=== PATIENT | female | born 1980 | race Caucasian/White ===

== ENCOUNTER 2016-07-06 22:36 | Inpatient (IN) | payer MEDICAID ==
[2016-07-06] MEDS ORDERED: OXYTOCIN 10 UNIT INJ ONE (22:47)
[2016-07-06] MEDS ORDERED: OXYTOCIN 30 UNITS/LR 500 ML IV ONE ×2 (22:48)
--- NOTE | 2016-07-06 22:51 | TRIAGE ---
OB Triage Datetime Report Generated by CPN: 07/06/2016 22:51 Datetime: 07/06/2016 22:49 Time of Arrival: 07/06/2016 22:35 EGA: 38.5 Arrived By: Wheelchair Arrived From: Home Chief Complaint: w/ c/o ucs and SROM at 2233 Movement: Present Contractions: Regular Time Contractions Began: 07/06/2016 21:00 Contractions: q3 Rupture of Membranes: Ruptured Vaginal Bleeding: Small Vaginal Discharge: Present Recent Sexual Intercouse: Denies Abdominal Trauma: Not Applicable Patient Complaints: Contractions Time Provider Notified: 07/06/2016 22:43 Provider Notified: Dr Mendez
[2016-07-06] MEDS ORDERED: LACTATED RINGER'S 1,000 ML IV SCH (22:52)
[2016-07-06] MEDS ORDERED: morphine 10 MG INJ ONE (22:57)
[2016-07-06] MEDS ORDERED: OXYTOCIN 30 UNITS/LR 500 ML IV SCH ×2 (23:00)
[2016-07-06] MEDS ORDERED: LIDOCAINE 1% (MPF) 30 ML INJ INJ PRN (23:00)
[2016-07-06] MEDS ORDERED: AMPICILLIN 2 GM/NS (PMX) 100 ML IV ONE (23:00)
[2016-07-06] MEDS ORDERED: METHYLERGONOVINE 0.2 MG INJ IM PRN (23:00)
[2016-07-06] MEDS ORDERED: MISOPROSTOL 200 MCG TAB PR PRN (23:00)
[2016-07-06] MEDS ORDERED: IBUPROFEN 600 MG TAB PO PRN (23:00)
[2016-07-06] MEDS ORDERED: CARBOPROST 250 MCG INJ IM PRN (23:00)
[2016-07-06] MEDS ORDERED: OXYTOCIN 30 UNITS/LR 500 ML IV PRN (23:00)
--- NOTE | 2016-07-06 23:11 | HP ---
Date/Time of Note Date/Time of Note DATE: 07/06/16 TIME: 23:07 OB - History Hx of Present Chief Complaint: contractions Estimated Due Date: Jul 15, 2016 : 3 Para: 2 Spontaneous : 0 Therapeutic : 0 Care: Good Care Ultrasounds: Normal mid trimester US Obstetrical Complications: Growth Restriction Medical Complications: None Past Family/Social History * Past Medical, Surgical, Family and Obstetric Histories reviewed from chart. GBS Status: Negative OB Admission Exam Physical Exam HEENT: WNL Heart: Rhythm Normal Lungs: Clear Abdomen: WNL Extremities: Normal Cervical Dilatation: 8cm Effacement: 100% Station: 0 Membranes: Ruptured Amniotic Fluid: Clear OB Assessment/Plan Reason for admission: active labor Plan: Expectant Management MIGUEL REID MD July 06, 2016 23:11
--- NOTE | 2016-07-06 23:13 | LDN ---
Date/Time of Note Date/Time of Note DATE: 07/06/16 TIME: 23:11 Delivery Summary Weeks of Gestation 38 weeeks and 5 days Placenta Delivered: Spontaneously Meconium: none Episiotomy: No (Please specify) Perineal laceration: 0 Anesthesia type: None Estimated blood loss: 100 Sponge & Needle done & correct: Yes All needle counts correct: Yes Any foreign bodies felt in the: No (Please specify) Problems: Delivery Information Sex Sex: male Apgars 1 Minute: 9 5 Minute: 9 Suctioning Nose & mouth suctioned at [place]: Yes Delee suction performed: No Umbilical Cord Cord presentations: no nuchal cord Cord Blood was obtained: Yes Mother & Baby Disposition Disposition Mom transferred to: Other () Baby to NICU: Yes MIGUEL REID MD July 06, 2016 23:13
[2016-07-06 23:29] LABS: ADD SCAN DIFF NO
[2016-07-06 23:36] LABS: BASOPHILS % 0.2 % (0.0-2.0); EOSINOPHILS # 0.1 10^3/ul (0.0-0.5); EOSINOPHILS % 0.4 % (0.0-7.0); HEMATOCRIT 39.8 % (37.0-47.0); HEMOGLOBIN 13.5 g/dl (12.0-16.0); LYMPHOCYTES # 3.7 10^3/ul (0.8-2.9); MEAN CORPUSCULAR HGB CONC 33.9 g/dl (32.0-37.0); MEAN CORPUSCULAR VOLUME 94.3 fl (82.0-101.0); MEAN PLATELET VOLUME 11.3 fl (7.4-10.4); MONOCYTE # 1.4 10^3/ul (0.3-0.9); NEUTROPHIL # 12.2 10^3/ul (1.6-7.5); NEUTROPHILS % 69.4 % (39.0-77.0); PLATELET COUNT 219 10^3/UL (140-415); RED BLOOD COUNT 4.22 10^6/ul (4.20-5.40); RED CELL DISTRIBUTION WIDTH 12.5 % (11.5-14.5); WHITE BLOOD COUNT 17.6 10^3/ul (4.8-10.8)
[2016-07-07 00:06] LABS: ALBUMIN 3.6 g/dl (3.3-4.9); ALBUMIN/GLOBULIN RATIO 0.9; BILIRUBIN,INDIRECT 0.7 mg/dl (0-1.1); BILIRUBIN,TOTAL 0.7 mg/dl (0.2-1.3); CALCIUM 9.4 mg/dl (8.4-10.2); CREATININE 0.53 mg/dl (0.44-1.00); TOTAL PROTEIN 7.6 g/dl (6.1-8.1); URIC ACID 4.7 mg/dl (3.1-7.9)
[2016-07-07] MEDS ORDERED: LACTATED RINGER'S 1,000 ML IV* SCH (01:24)
[2016-07-07 01:30] VITALS: BP 127/80; PULSE 91; RESP 19
[2016-07-07] MEDS ORDERED: ACETAMINOPHEN 325 MG TAB PO PRN (01:30)
[2016-07-07] MEDS ORDERED: ACETAMINOPHEN/CODEINE #3 TAB PO PRN (01:30)
[2016-07-07] MEDS ORDERED: WITCH HAZEL/GLYCERIN PAD PR PRN (01:30)
[2016-07-07] MEDS ORDERED: OXYTOCIN 30 UNITS/LR 500 ML IV PRN (01:30)
[2016-07-07] MEDS ORDERED: CARBOPROST 250 MCG INJ IM PRN (01:30)
[2016-07-07] MEDS ORDERED: MISOPROSTOL 200 MCG TAB PR PRN (01:30)
[2016-07-07] MEDS ORDERED: DIBUCAINE 1% 30 GM OINT PR PRN (01:30)
[2016-07-07] MEDS ORDERED: BENZOCAINE 20% 56 ML SPRAY TOP PRN (01:30)
[2016-07-07] MEDS ORDERED: METHYLERGONOVINE 0.2 MG INJ IM PRN (01:30)
[2016-07-07 02:11] LABS: INR 0.91; PROTIME 12.3 Sec (12.2-14.2)
[2016-07-07 02:12] LABS: PARTIAL THROMBOPLASTIN TIME 27.9 Sec (25.0-35.0)
[2016-07-07] MEDS ORDERED: AMPICILLIN 1 GM/NS (PMX) 50 ML IV SCH (03:00)
[2016-07-07 03:30] VITALS: BP_SYST 114; BP_SYST 116; BP_DIAS 55; BP_DIAS 69; PULSE 71; PULSE 81; RESP 18
[2016-07-07 04:21] LABS: ADD UMIC YES; URINE BILIRUBIN (Dip) NEGATIVE (NEGATIVE); URINE BLOOD (Dip) 3+ (NEGATIVE); URINE COLOR DK. RED (YELLOW); URINE GLUCOSE (Dip) NEGATIVE (NEGATIVE); URINE KETONES (Dip) 40 (NEGATIVE); URINE LEUKOCYTE ESTERASE (Dip) 2+ (NEGATIVE); URINE NITRITE (Dip) POSITIVE (NEGATIVE); URINE UROBILINOGEN (Dip) 2.0 E.U./dL (0.1-1.0)
[2016-07-07 04:51] LABS: URINE TOTAL PROTEIN (Dip) 4+ (NEGATIVE)
[2016-07-07 04:52] LABS: BACTERIA,URINE MANY; SQUAMOUS EPITHELIAL CELL,UR FEW; URINE RBCS >200 /HPF (0)
[2016-07-07 08:00] VITALS: BP 116/75; PULSE 88; RESP 19
[2016-07-07 09:01] LABS: ADD SCAN DIFF NO
[2016-07-07 09:04] LABS: BASOPHILS % 0.2 % (0.0-2.0); EOSINOPHILS % 0.2 % (0.0-7.0); HEMATOCRIT 38.6 % (37.0-47.0); HEMOGLOBIN 13.1 g/dl (12.0-16.0); LYMPHOCYTES # 2.2 10^3/ul (0.8-2.9); LYMPHOCYTES % 12.6 % (15.0-51.0); MEAN CORPUSCULAR HEMOGLOBIN 32.1 pg (29.0-33.0); MEAN CORPUSCULAR HGB CONC 33.9 g/dl (32.0-37.0); MEAN CORPUSCULAR VOLUME 94.6 fl (82.0-101.0); MEAN PLATELET VOLUME 11.4 fl (7.4-10.4); MONOCYTE # 1.2 10^3/ul (0.3-0.9); MONOCYTES % 6.7 % (0.0-11.0); NEUTROPHILS % 79.5 % (39.0-77.0); PLATELET COUNT 215 10^3/UL (140-415); RED BLOOD COUNT 4.08 10^6/ul (4.20-5.40); RED CELL DISTRIBUTION WIDTH 12.4 % (11.5-14.5); WHITE BLOOD COUNT 17.7 10^3/ul (4.8-10.8)
[2016-07-07] MEDS: SENNA/DOCUSATE NA (8.6MG/50MG) TAB PO SCH ×2 (09:13→21:00)
--- NOTE | 2016-07-07 10:00 | PN ---
Date/Time of Note Date/Time of Note DATE: 07/07/16 TIME: 09:59 OB Subjective Subjective Subjective Post normal vaginal delivery day 1 Afebrile VSs stable abdomen soft uterus firm lochia normal extremity normal ambulation encouraged Laboratory Tests Test 07/06/16 22:45 07/06/16 23:00 07/06/16 23:14 07/06/16 23:59 Sodium Level 134mmol/L Potassium Level 4.0mmol/L Chloride Level 106mmol/L Carbon Dioxide Level 17mmol/L Anion Gap 15 Blood Urea Nitrogen 9mg/dl Creatinine 0.53mg/dl Glucose Level 102mg/dl Uric Acid 4.7mg/dl Calcium Level 9.4mg/dl Total Bilirubin 0.7mg/dl Direct Bilirubin 0.00mg/dl Indirect Bilirubin 0.7mg/dl Aspartate Amino Transf (AST/SGOT) 31IU/L Alanine Aminotransferase (ALT/SGPT) 33IU/L Alkaline Phosphatase 210IU/L Total Protein 7.6g/dl Albumin 3.6g/dl Globulin 4.00g/dl Albumin/Globulin Ratio 0.90 White Blood Count 17.610^3/ul Red Blood Count 4.2210^6/ul Hemoglobin 13.5g/dl Hematocrit 39.8% Mean Corpuscular Volume 94.3fl Mean Corpuscular Hemoglobin 32.0pg Mean Corpuscular Hemoglobin Concent 33.9g/dl Red Cell Distribution Width 12.5% Platelet Count 06716^3/UL Mean Platelet Volume 11.3fl Neutrophils % 69.4% Lymphocytes % 21.0% Monocytes % 8.0% Eosinophils % 0.4% Basophils % 0.2% Nucleated Red Blood Cells % 0.0/100WBC Neutrophils # 12.210^3/ul Lymphocytes # 3.710^3/ul Monocytes # 1.410^3/ul Eosinophils # 0.110^3/ul Basophils # 0.010^3/ul Nucleated Red Blood Cells # 0.010^3/ul Hepatitis B Surface Antigen NEGATIVE Bedside Glucose 69mg/dL Prothrombin Time 12.3Sec Prothrombin Time Ratio 1.0 INR International Normalized Ratio 0.91 Activated Partial Thromboplast Time 27.9Sec Test 07/07/16 00:21 07/07/16 08:32 Urine Color DK. RED Urine Clarity CLEAR Urine pH 5.0 Urine Specific [place] 1.015 Urine Ketones 40 Urine Nitrite POSITIVE Urine Bilirubin NEGATIVE Urine Urobilinogen 2.0 E.U./dL Urine Leukocyte Esterase 2+ Urine Microscopic RBC >200/HPF Urine Microscopic WBC 5-10/HPF Urine Squamous Epithelial Cells FEW Urine Bacteria MANY Urine Hemoglobin 3+ Urine Glucose NEGATIVE% Urine Total Protein 4+ White Blood Count 17.710^3/ul Red Blood Count 4.0810^6/ul Hemoglobin 13.1g/dl Hematocrit 38.6% Mean Corpuscular Volume 94.6fl Mean Corpuscular Hemoglobin 32.1pg Mean Corpuscular Hemoglobin Concent 33.9g/dl Red Cell Distribution Width 12.4% Platelet Count 96753^3/UL Mean Platelet Volume 11.4fl Neutrophils % 79.5% Lymphocytes % 12.6% Monocytes % 6.7% Eosinophils % 0.2% Basophils % 0.2% Nucleated Red Blood Cells % 0.0/100WBC Neutrophils # 14.010^3/ul Lymphocytes # 2.210^3/ul Monocytes # 1.210^3/ul Eosinophils # 0.010^3/ul Basophils # 0.010^3/ul Nucleated Red Blood Cells # 0.010^3/ul Current Medications Medications (Trade) Dose Ordered Sig/Roman Route PRN Reason Start Time Stop Time Status Last Admin Dose Admin Oxytocin 10 units 10 units STK-MED ONCE .ROUTE 07/06/16 22:47 07/06/16 22:48 DC Oxytocin/Lactated Ringer's 500 ml @ ud STK-MED ONCE IV 07/06/16 22:48 07/06/16 22:49 DC Oxytocin/Lactated Ringer's 500 ml @ ud STK-MED ONCE IV 07/06/16 22:48 07/06/16 22:49 DC Lactated Ringer's 1,000 ml @ 125 mls/hr Q8H IV 07/06/16 22:52 07/07/16 01:26 DC 07/06/16 23:28 Ampicillin 100 ml @ 100 mls/hr ONCE ONCE IV 07/06/16 23:00 07/06/16 23:59 DC 07/06/16 23:00 Ampicillin (Ampicillin 1 Gm/ NS (Pmx)) 50 ml @ 100 mls/hr Q4H IV 07/07/16 03:00 07/07/16 03:00 DC Lidocaine 30 ml 30 ml ONCE PRN INJ EPISIOTOMY/TEARING 07/06/16 23:00 07/07/16 01:26 DC Oxytocin/Lactated Ringer's 500 ml @ 125 mls/hr ONCE -MAY REPEAT X1 IV 07/06/16 23:00 07/07/16 01:26 DC Oxytocin/Lactated Ringer's 500 ml @ 125 mls/hr ONCE IV 07/06/16 23:00 07/07/16 01:27 DC Ibuprofen 600 mg 600 mg ONCE PRN PO Mild Pain (Pain Score 1-3) 07/06/16 23:00 07/07/16 01:27 DC Oxytocin/Lactated Ringer's 500 ml @ 0 mls/hr ONCE PRN IV For Hemorrhage Management 07/06/16 23:00 07/07/16 01:27 DC Methylergonovine Maleate (Methergine) 0.2 mg ONCE PRN IM VAGINAL BLEEDING 07/06/16 23:00 07/07/16 01:27 DC Carboprost Tromethamine (Hemabate) 250 mcg ONCE PRN IM VAGINAL BLEEDING 07/06/16 23:00 07/07/16 01:27 DC Misoprostol (Cytotec) 1,000 mcg ONCE PRN [place] VAGINAL BLEEDING 07/06/16 23:00 07/07/16 01:27 DC Morphine Sulfate 10 mg 10 mg STK-MED ONCE .ROUTE 07/06/16 22:57 07/06/16 22:58 DC Lactated Ringer's (Lr) 1,000 ml @ 125 mls/hr Q8H IV* 07/07/16 01:24 07/07/16 05:11 Ibuprofen (Motrin) 600 mg Q6 PO 07/07/16 12:00 Acetaminophen (Tylenol Tab) 650 mg Q4H PRN PO PAIN LEVEL 1-5 07/07/16 01:30 Acetaminophen/ Codeine Phosphate (Tylenol No.3) 1 tab Q4H PRN PO PAIN LEVEL 1-5 07/07/16 01:30 07/07/16 01:50 Senna/Docusate Sodium (Senokot-S) 1 tab BID PO 07/07/16 09:00 07/07/16 09:13 Witch Lachelle/ Glycerin (Tucks Pads) 1 pad BEDSIDE MEDICATION PRN [place] HEMORRHOID/EPISIOTMY PAIN 07/07/16 01:30 07/07/16 01:50 Benzocaine (Dermoplast [place]) 1 spray BEDSIDE MEDICATION PRN TOP HEMORRHOID/EPISIOTMY PAIN 07/07/16 01:30 07/07/16 01:50 Dibucaine (Nupercainal) 1 applic BEDSIDE MEDICATION PRN [place] HEMORRHOID/EPISIOTMY PAIN 07/07/16 01:30 Diphtheria/ Tetanus/Acell Pertussis 0.5 ml 0.5 ml ONCE ONCE IM* 07/08/16 09:00 07/08/16 09:01 Oxytocin/Lactated Ringer's 500 ml @ 0 mls/hr ONCE PRN IV For Hemorrhage Management 07/07/16 01:30 Methylergonovine Maleate (Methergine) 0.2 mg ONCE PRN IM VAGINAL BLEEDING 07/07/16 01:30 Carboprost Tromethamine (Hemabate) 250 mcg ONCE PRN IM VAGINAL BLEEDING 07/07/16 01:30 Misoprostol (Cytotec) 1,000 mcg ONCE PRN [place] VAGINAL BLEEDING 07/07/16 01:30 VIVIANA MORELOS MD July 07, 2016 10:00
[2016-07-07] MEDS: IBUPROFEN 600 MG TAB PO SCH ×2 (13:48→18:48)
[2016-07-07 16:00] VITALS: BP 105/76; PULSE 85; RESP 19
[2016-07-07 20:00] VITALS: BP 129/71; PULSE 86; RESP 20
[2016-07-08] MEDS: IBUPROFEN 600 MG TAB PO SCH ×3 (00:24→12:20)
[2016-07-08 04:00] VITALS: BP 118/74; PULSE 81; RESP 18
[2016-07-08 07:40] VITALS: BP 107/95; PULSE 88; RESP 16
[2016-07-08 08:09] LABS: ADD SCAN DIFF NO
[2016-07-08 08:14] LABS: BASOPHILS % 0.4 % (0.0-2.0); EOSINOPHILS # 0.2 10^3/ul (0.0-0.5); EOSINOPHILS % 1.6 % (0.0-7.0); HEMATOCRIT 37.8 % (37.0-47.0); HEMOGLOBIN 12.5 g/dl (12.0-16.0); LYMPHOCYTES # 2.5 10^3/ul (0.8-2.9); LYMPHOCYTES % 24.5 % (15.0-51.0); MEAN CORPUSCULAR HEMOGLOBIN 31.8 pg (29.0-33.0); MEAN CORPUSCULAR HGB CONC 33.1 g/dl (32.0-37.0); MEAN CORPUSCULAR VOLUME 96.2 fl (82.0-101.0); MEAN PLATELET VOLUME 11.1 fl (7.4-10.4); MONOCYTE # 0.8 10^3/ul (0.3-0.9); MONOCYTES % 7.9 % (0.0-11.0); NEUTROPHIL # 6.5 10^3/ul (1.6-7.5); NEUTROPHILS % 64.9 % (39.0-77.0); PLATELET COUNT 189 10^3/UL (140-415); RED BLOOD COUNT 3.93 10^6/ul (4.20-5.40); RED CELL DISTRIBUTION WIDTH 12.6 % (11.5-14.5)
[2016-07-08] MEDS: SENNA/DOCUSATE NA (8.6MG/50MG) TAB PO SCH (08:32)
[2016-07-08] MEDS ORDERED: DIPHTH/TET/ACEL PERTUSS (ADULT) 0.5 ML VIAL IM* ONE (09:00)
--- NOTE | 2016-07-08 12:29 | PD.PPDC ---
NEWS PHOTOGRAPHER Discharge Instruction Diagnosis Final Diagnosis: Day 2 post normal vaginal delivery Condition Patient Condition: Good Diet Diet: Resume Regular Diet Activity/Restrictions Activity: Normal Activity May Shower Restrictions: No Exercising No Lifting No Driving No Sexual Activity Nothing in the Vagina No [place] No Tampons, douche Follow-up Follow-up with Physician: 2, Week/Weeks Provider Information: Appointment clinic in 2 weeks for check Return to clinic for TABLE[facility] ADMINISTRATOR Instructions: Fever greater than 101 Chills Worsening abdominal pain Excessive Vaginal Bleeding More than 2 pads per hour Unable to tolerate diet OB Instructions: Breast Tenderness Depression Blurried Vision Headache VIVIANA MORELOS MD July 08, 2016 12:29
--- NOTE | 2016-07-08 12:32 | DS ---
Date/Time of Note Date/Time of Note DATE: 07/08/16 TIME: 12:30 Discharge Summary Admission/Discharge Info Admit Date/Time July 06, 2016 at 22:42 Discharge Date/Time Jul 08 2016 at 1225 Final Diagnosis Day 2 post normal vaginal delivery Patient Condition: Good Procedures Normal vaginal delivery Hx of Present Illness Term normal vaginal delivery Hospital Course Satisfactory uneventful Follow-up Plan Appointment clinic in 2 weeks for check Primary Care Provider Care Physician No Primary Time spent on discharge: < 30 minutes Pending Labs Laboratory Tests Test 07/08/16 07:52 White Blood Count 10.010^3/ul (4.8-10.8) Red Blood Count 3.9310^6/ul (4.20-5.40) Hemoglobin 12.5g/dl (12.0-16.0) Hematocrit 37.8% (37.0-47.0) Mean Corpuscular Volume 96.2fl (82.0-101.0) Mean Corpuscular Hemoglobin 31.8pg (29.0-33.0) Mean Corpuscular Hemoglobin Concent 33.1g/dl (32.0-37.0) Red Cell Distribution Width 12.6% (11.5-14.5) Platelet Count 98497^3/UL (140-415) Mean Platelet Volume 11.1fl (7.4-10.4) Neutrophils % 64.9% (39.0-77.0) Lymphocytes % 24.5% (15.0-51.0) Monocytes % 7.9% (0.0-11.0) Eosinophils % 1.6% (0.0-7.0) Basophils % 0.4% (0.0-2.0) Nucleated Red Blood Cells % 0.0/100WBC (0.0-0.0) Neutrophils # 6.510^3/ul (1.6-7.5) Lymphocytes # 2.510^3/ul (0.8-2.9) Monocytes # 0.810^3/ul (0.3-0.9) Eosinophils # 0.210^3/ul (0.0-0.5) Basophils # 0.010^3/ul (0.0-0.1) Nucleated Red Blood Cells # 0.010^3/ul (0.0-0.0) VIVIANA MORELOS MD July 08, 2016 12:32
--- NOTE | 2016-07-13 21:40 | NSTRPT ---
NST Information Datetime Report Generated by CPN: 07/13/2016 21:40 Datetime: 07/05/2016 09:00 NST Information EGA: 38.4 Test Number: 5 Time on Monitor: 07/05/2016 09:22 Time off Monitor: 07/05/2016 09:45 NST Duration (Min): 23 Reason for NST: Poor Growth Test and Monitor Explained: Monitor Explained; Test Explained; Verbalized Understanding Pulse: 81 Resp: 17 SBP: 105 DBP: 66 Test Evaluation NST Interventions: PO Hydration; Reposition Patient Patient States Movement: Present Contraction Frequency: none FHR Baseline : 130 Variability: Moderate 6-25bpm Accelerations: 15X15 Decelerations: None FHR Category: Category I NST Results: Reactive Comments: pt to U/S, LUCIO 9.8cm, cephalic 0947-Pt discharged home with term labor precautions, discussed kick counts, follow-up NST/A FI appointment given. Pt verbalizes understanding and denies questions. Electronically Signed By E-Signature: with User ID: [id number] Datetime: 07/01/2016 09:10 NST Information EGA: 38.0 NST Duration (Min): 25 Datetime: 06/28/2016 09:10 NST Information EGA: 37.4 NST Duration (Min): 26 Datetime: 06/24/2016 08:55 NST Information EGA: 37.0 NST Duration (Min): 20 Datetime: 06/21/2016 10:17 NST Information EGA: 36.4 Datetime: 06/21/2016 09:20 NST Duration (Min): 40
== END 2016-07-08 14:57 | disposition home or self-care (01) | DRG 775 ==
LOC: OBT 22:36 → L-D 22:36 → OBT 22:41 → L-D 22:42 → PP1 07-07 01:04
PROVIDERS: ADMIT Obstetrics & Gynecology; ATTEND Obstetrics & Gynecology
PROC: 10E0XZZ Delivery of Products of Conception, External Approach (ICD-10-PCS; principal; 2016-07-06)
DX: O36.5930 Maternal care for other known or suspected poor fetal growth, third trimester, not applicable or unspecified (principal); Z37.0 Single live birth; Z3A.38 38 weeks gestation of pregnancy
CPT/HCPCS: 80053; 81001; 82962; 84560; 85025; 85610; 85730; 86592; 86900; 86901; 87340; 88307; 90715; G0463; J0290; J2270; J2590; J7120